=== PATIENT | male | born 1965 | race Caucasian/White ===

== ENCOUNTER 2020-11-25 15:36 | Outpatient (CLI) | payer MEDICARE, SELFPAY | END 2020-11-25 15:37 | disposition home or self-care (01) | LOC: ANHCOVIDVC 15:36 | PROVIDERS: PCP Physician Assistant | DX: Z23 Encounter for immunization (principal) | CPT/HCPCS: 0001A; 91300 ==

== ENCOUNTER 2020-12-16 14:27 | Outpatient (CLI) | payer MEDICARE, SELFPAY | END 2020-12-16 14:28 | disposition home or self-care (01) | LOC: ANHCOVIDVC 14:27 | PROVIDERS: PCP Physician Assistant | DX: Z23 Encounter for immunization (principal) | CPT/HCPCS: 0002A; 91300 ==